=== PATIENT | female | born 1950 | race Caucasian/White ===

== ENCOUNTER 2019-04-08 15:02 | Emergency (ER) | payer MEDICARE, OTHER ==
[2019-04-08] MEDS ORDERED: Aspirin Chewable 81 MG TAB ONE (15:16)
[2019-04-08 15:29] LABS: #Basophils 0.1 thou/uL (0.0-0.2); #Eosinphils 0.1 thou/uL (0.0-0.7); #Lymphocytes 1.2 thou/uL (1.20-3.40); #Monocytes 0.8 thou/uL (0.11-0.59); %Eosinophils 1.5 % (0.0-10.0); %Lymphocytes 12.7 % (21.0-51.0); %Monocytes 8.3 % (0.0-10.0); %Neutrophils 76.5 % (42.0-75.0); Hemoglobin 12.7 g/dL (12.0-16.0); Mean Corpuscular HGB CONC 32.7 g/dL (32.0-36.0); Mean Corpuscular Hemoglobin 29.5 pg (27.0-31.0); Mean Corpuscular Volume 90.2 fL (78.0-98.0); Platelet Count 283 thou/uL (130-400); RBC Distribution Width 12.5 % (11.5-14.5); White Blood Cell (WBC) Count 9.2 thou/uL (4.8-10.8)
[2019-04-08 15:46] LABS: ALT (SGPT) 33 U/L (8-55); AST (SGOT) 26 U/L (5-34); Albumin 4.3 g/dL (3.4-4.8); Alkaline Phosphatase 87 U/L (40-110); Anion Gap 14 mmol/L (10-20); BUN (Urea Nitrogen) 12 mg/dL (9.8-20.1); Bilirubin, Total 0.6 mg/dL (0.2-1.2); Calc. Creatinine Clearance 0 mL/min (70-130); Carbon Dioxide 28 mmol/L (23-31); Chloride 104 mmol/L (98-107); Estimated GFR-MDRD 77; Globulin 3.3 g/dL (2.4-3.5); Glucose 95 mg/dL (80-115); Potassium 3.8 mmol/L (3.5-5.1); Protein, Total 7.6 g/dL (6.0-8.3); Sodium 142 mmol/L (136-145)
--- NOTE | 2019-04-08 17:47 | RAD ---
PORTABLE CHEST: Date: 04-08-19 An AP portable film at 1532 is compared with an 01-30-[address] [facility]. FINDINGS: The heart is normal in size and the lungs are clear. There is no vascular congestion or edema. There are no effusions. IMPRESSION: No acute thoracic finding. POS: HOME
== END 2019-04-08 17:00 | disposition home or self-care (01) ==
LOC: BURERS 15:02
DX: R07.2 Precordial pain (principal); Z79.899 Other long term (current) drug therapy
CPT/HCPCS: 71045; 80053; 83880; 84484; 85025; 93005

== ENCOUNTER 2021-04-22 19:41 | Inpatient (IN) | payer MEDICARE, OTHER ==
[2021-04-22 20:20] VITALS: BMI 27.3
[2021-04-23] MEDS ORDERED: Acetaminophen 325 MG TAB PO PRN (00:53)
[2021-04-23] MEDS ORDERED: HYDROcodone/Acetaminophen 5/325 mg Tablet PO PRN ×2 (01:00)
[2021-04-23 01:59] LABS: SARS-CoV-2 NAA Rapid Test Not Detected (NotDetected)
[2021-04-23] MEDS ORDERED: NAPROXEN SODIUM 220 MG PO PRN (06:56)
[2021-04-23] MEDS ORDERED: HYDROcodone/Acetaminophen 10/325 mg Tablet PO PRN (06:56)
[2021-04-23] MEDS ORDERED: ALPRAZolam 0.5 MG TAB PO PRN (06:56)
[2021-04-23] MEDS: Calcium Carbonate 600 MG + Vit D TAB PO SCH ×2 (08:13→20:46)
[2021-04-23] MEDS: Oxybutynin 5 MG TAB PO SCH (08:14)
[2021-04-23] MEDS: Senokot S 8.6-50 MG TAB PO PRN (08:14)
[2021-04-23] MEDS: Saccharomyces boulardii 250 MG CAP PO SCH (08:15)
[2021-04-23] MEDS: Aspirin 81 mg Enteric Coated Tablet PO SCH ×2 (08:15→20:46)
[2021-04-23] MEDS: Naproxen 500 MG TAB PO PRN (08:23)
[2021-04-23] MEDS ORDERED: Enoxaparin Sodium 40 MG/0.4 ML SYRINGE SC SCH (09:00)
[2021-04-23] MEDS ORDERED: CALCIUM CARBONATE PO SCH (09:00)
[2021-04-23] MEDS ORDERED: [UNRECOGNIZED DRUG - OTHER] PO SCH (09:00)
[2021-04-23] MEDS ORDERED: VITAMIN D3 PO SCH (09:00)
[2021-04-23] MEDS ORDERED: Non-Formulary Item 1 EACH (Omeprazole Magnesium [Prilosec Otc] 20 MG Tab) PO SCH (09:00)
[2021-04-23] MEDS ORDERED: LACTOBACILLUS ACIDOPHILUS PO SCH (09:00)
[2021-04-23] MEDS ORDERED: Bisacodyl 10 MG SUPP PR PRN (09:58)
[2021-04-23] MEDS: HYDROcodone/Acetaminophen 10/325 mg Tablet PO PRN (10:14)
[2021-04-23] MEDS: Polyethylene Glycol 3350 17 GM Packet PO PRN (11:05)
[2021-04-23] MEDS: traMADol HCl 50 MG TAB PO PRN ×2 (14:45→20:46)
[2021-04-24] MEDS: traMADol HCl 50 MG TAB PO PRN ×3 (06:03→21:18)
[2021-04-24 07:19] LABS: Anion Gap 13 mmol/L (10-20); BUN (Urea Nitrogen) 12 mg/dL (9.8-20.1); Calc. Creatinine Clearance 97 mL/min (70-130); Calcium 9.6 mg/dL (7.8-10.44); Carbon Dioxide 26 mmol/L (23-31); Chloride 104 mmol/L (98-107); Glucose 92 mg/dL (83-110); Potassium 4.3 mmol/L (3.5-5.1); Sodium 139 mmol/L (136-145)
[2021-04-24 07:52] LABS: Hemoglobin 11.5 g/dL (12.0-16.0); Mean Corpuscular HGB CONC 33.7 g/dL (32.0-36.0); Mean Corpuscular Hemoglobin 30.1 pg (27.0-31.0); Mean Corpuscular Volume 89.3 fL (78.0-98.0); Mean Platelet Volume 6.6 fL (7.4-10.4); Platelet Count 311 thou/uL (130-400); RBC Distribution Width 12.4 % (11.5-14.5); Red Blood Cell (RBC) Count 3.81 mill/uL (4.20-5.40); White Blood Cell (WBC) Count 4.2 thou/uL (4.8-10.8)
[2021-04-24 08:25] LABS: Band 2 % (5-11); Eosinophils 5 % (0-10); Lymphocytes 21 % (21-51); MDiff Complete? YES; Monocytes 13 % (0-10); Neutrophil 58 % (42-75)
[2021-04-24] MEDS: Saccharomyces boulardii 250 MG CAP PO SCH (09:17)
[2021-04-24] MEDS: Senokot S 8.6-50 MG TAB PO PRN (09:17)
[2021-04-24] MEDS: Calcium Carbonate 600 MG + Vit D TAB PO SCH ×2 (09:18→21:18)
[2021-04-24] MEDS: Oxybutynin 5 MG TAB PO SCH (09:18)
[2021-04-24] MEDS: Aspirin 81 mg Enteric Coated Tablet PO SCH ×2 (09:18→21:18)
[2021-04-24] MEDS: Naproxen 500 MG TAB PO PRN (09:33)
[2021-04-25] MEDS: Acetaminophen ER (8hr) 650 MG TAB PO PRN (02:25)
[2021-04-25] MEDS ORDERED: FLU VACC QS2021-22(65YR UP)/PF 240 MCG/0.7 ML SYRINGE IM ONE (09:00)
[2021-04-25] MEDS: Aspirin 81 mg Enteric Coated Tablet PO SCH ×2 (09:04→20:28)
[2021-04-25] MEDS: Calcium Carbonate 600 MG + Vit D TAB PO SCH ×2 (09:04→20:28)
[2021-04-25] MEDS: Saccharomyces boulardii 250 MG CAP PO SCH (09:04)
[2021-04-25] MEDS: Oxybutynin 5 MG TAB PO SCH (09:04)
[2021-04-25] MEDS: traMADol HCl 50 MG TAB PO PRN ×2 (12:05→20:27)
[2021-04-26] MEDS: Acetaminophen ER (8hr) 650 MG TAB PO PRN (05:27)
[2021-04-26] MEDS: Ondansetron ODT 4 MG TAB PO PRN (08:48)
[2021-04-26] MEDS: Calcium Carbonate 600 MG + Vit D TAB PO SCH ×2 (08:49→20:50)
[2021-04-26] MEDS: Saccharomyces boulardii 250 MG CAP PO SCH (08:49)
[2021-04-26] MEDS: Aspirin 81 mg Enteric Coated Tablet PO SCH ×2 (08:50→20:50)
[2021-04-26] MEDS: Oxybutynin 5 MG TAB PO SCH (08:50)
[2021-04-26] MEDS: HYDROcodone/Acetaminophen 10/325 mg Tablet PO PRN (11:23)
[2021-04-26] MEDS: traMADol HCl 50 MG TAB PO PRN ×2 (17:33→21:42)
[2021-04-27] MEDS: Calcium Carbonate 600 MG + Vit D TAB PO SCH ×2 (08:11→20:47)
[2021-04-27] MEDS: Saccharomyces boulardii 250 MG CAP PO SCH (08:11)
[2021-04-27] MEDS: HYDROcodone/Acetaminophen 10/325 mg Tablet PO PRN (08:11)
[2021-04-27] MEDS: Aspirin 81 mg Enteric Coated Tablet PO SCH ×2 (08:11→20:47)
[2021-04-27] MEDS: Oxybutynin 5 MG TAB PO SCH (08:11)
[2021-04-27] MEDS: Acetaminophen ER (8hr) 650 MG TAB PO PRN (15:14)
[2021-04-27] MEDS: traMADol HCl 50 MG TAB PO PRN (20:46)
[2021-04-28] MEDS: traMADol HCl 50 MG TAB PO PRN ×3 (02:20→20:29)
[2021-04-28] MEDS: Aspirin 81 mg Enteric Coated Tablet PO SCH ×2 (08:43→20:29)
[2021-04-28] MEDS: Calcium Carbonate 600 MG + Vit D TAB PO SCH ×2 (08:43→20:29)
[2021-04-28] MEDS: Senokot S 8.6-50 MG TAB PO PRN (08:43)
[2021-04-28] MEDS: Oxybutynin 5 MG TAB PO SCH (08:43)
[2021-04-28] MEDS: Saccharomyces boulardii 250 MG CAP PO SCH (08:43)
[2021-04-28] MEDS: HYDROcodone/Acetaminophen 10/325 mg Tablet PO PRN (08:49)
[2021-04-28] MEDS ORDERED: Lisinopril 20 MG TAB PO SCH ×2 (12:30→12:45)
[2021-04-29] MEDS: Acetaminophen ER (8hr) 650 MG TAB PO PRN (01:40)
[2021-04-29] MEDS: Senokot S 8.6-50 MG TAB PO PRN (08:54)
[2021-04-29] MEDS: Saccharomyces boulardii 250 MG CAP PO SCH (08:54)
[2021-04-29] MEDS: Polyethylene Glycol 3350 17 GM Packet PO PRN (08:54)
[2021-04-29] MEDS: Aspirin 81 mg Enteric Coated Tablet PO SCH ×2 (08:54→20:25)
[2021-04-29] MEDS: Oxybutynin 5 MG TAB PO SCH (08:55)
[2021-04-29] MEDS: Calcium Carbonate 600 MG + Vit D TAB PO SCH ×2 (08:55→20:25)
[2021-04-29] MEDS: Lisinopril 20 MG TAB PO SCH (08:55)
[2021-04-29] MEDS: HYDROcodone/Acetaminophen 10/325 mg Tablet PO PRN (09:00)
[2021-04-29] MEDS: Ondansetron ODT 4 MG TAB PO PRN (10:17)
[2021-04-29] MEDS: traMADol HCl 50 MG TAB PO PRN ×2 (15:29→20:24)
[2021-04-30 05:30] VITALS: TEMP 98.1
[2021-04-30] MEDS: Saccharomyces boulardii 250 MG CAP PO SCH (08:52)
[2021-04-30] MEDS: Lisinopril 20 MG TAB PO SCH (08:52)
[2021-04-30] MEDS: Aspirin 81 mg Enteric Coated Tablet PO SCH (08:53)
[2021-04-30] MEDS: Oxybutynin 5 MG TAB PO SCH (08:53)
[2021-04-30] MEDS: HYDROcodone/Acetaminophen 10/325 mg Tablet PO PRN (08:53)
[2021-04-30 08:54] VITALS: BP 127/83
[2021-04-30] MEDS: Calcium Carbonate 600 MG + Vit D TAB PO SCH (08:54)
== END 2021-04-30 11:50 | disposition home or self-care (01) | DRG 561 ==
LOC: BURMED 19:41
PROVIDERS: ADMIT Family Medicine; ATTEND Family Medicine
DX: Z47.1 Aftercare following joint replacement surgery (principal); K21.9 Gastro-esophageal reflux disease without esophagitis; F41.1 Generalized anxiety disorder; I10 Essential (primary) hypertension; N32.81 Overactive bladder; Z20.822 Contact with and (suspected) exposure to COVID-19; Z88.2 Allergy status to sulfonamides; Z88.8 Allergy status to other drugs, medicaments and biological substances; Z79.82 Long term (current) use of aspirin; Z79.899 Other long term (current) drug therapy; Z85.3 Personal history of malignant neoplasm of breast; Z90.49 Acquired absence of other specified parts of digestive tract; Z98.890 Other specified postprocedural states
CPT/HCPCS: 0241U; 80048; 85025; 90471; 90662; G0008; Q0162